=== PATIENT | male | born 1970 | race Hispanic/Latino ===

== ENCOUNTER 2017-05-17 21:25 | Inpatient (IN) | payer OTHER ==
[2017-05-17] MEDS ORDERED: ASPIRIN PO ONE (21:57)
[2017-05-17 22:25] LABS: Basophils # (Auto) 0.1 K/mm3 (0.0-0.1); Basophils % (Auto) 0.7 % (0.0-1.8); Eosinophils # (Auto) 0.2 K/mm3 (0.0-0.4); Eosinophils % (Auto) 2.1 % (0.0-4.3); Hematocrit 37.3 % (35.5-45.6); Hemoglobin 12.6 gm/dl (11.8-15.2); Lymphocytes # (Auto) 2.5 K/mm3 (1.2-5.4); Lymphocytes % (Auto) 27.4 % (13.4-35.0); Mean Corpuscular HGB Conc 34 % (32-34); Mean Corpuscular Hemoglobin 28 pg (28-32); Mean Corpuscular Volume 83 fl (84-94); Monocytes # (Auto) 0.7 K/mm3 (0.0-0.8); Monocytes % (Auto) 7.1 % (0.0-7.3); Platelet Count 263 K/mm3 (140-440); Red Blood Count 4.48 M/mm3 (3.65-5.03); Red Cell Distribution Width 14.9 % (13.2-15.2)
[2017-05-17 22:38] LABS: BUN/Creatinine Ratio 17; Blood Urea Nitrogen 12 mg/dL (9-20); Calcium 9.3 mg/dL (8.4-10.2); Hemolysis Index 1
[2017-05-17] MEDS ORDERED: MORPHINE IV ONE (23:36)
[2017-05-17] MEDS ORDERED: NITRO-BID 2% TP ONE (23:36)
[2017-05-17] MEDS ORDERED: ZOFRAN IV ONE (23:36)
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
--- NOTE | 2017-05-18 00:04 | XRay Report ---
FINAL REPORT EXAM: XR CHEST 1V AP HISTORY: chest pain TECHNIQUE: upright single view chest PRIORS: None. FINDINGS: Cardiac and mediastinal contours are unremarkable. No focal pulmonary infiltrate is identified. No pleural fluid collection seen. Pulmonary vasculature is unremarkable. IMPRESSION: Negative single-view chest
[2017-05-18] MEDS ORDERED: ZOFRAN IV PRN (01:26)
[2017-05-18] MEDS ORDERED: PERCOCET 5/325 PO PRN (01:26)
[2017-05-18] MEDS ORDERED: TYLENOL PO PRN (01:26)
[2017-05-18] MEDS ORDERED: SODIUM CHLORIDE FLUSH SYRINGE 10 ML IV PRN (01:26)
--- NOTE | 2017-05-18 01:35 | History and Physical Report ---
History of Present Illness Date of examination: 05/18/17 History of present illness: 47-year-old male with no medical problems comes emergency room with complaints of chest pain. Pain is in the epigastric area which he describes as sharp pain , intermittent in nature lasting for a few minutes, intensity 4/10, no radiation , cannot identify exacerbating over the counter. No nausea vomiting, shortness of breath, diaphoresis or palpitation Review of systems Constitutional: no weight loss, chills Ears, eyes, nose, mouth and throat: no nasal congestion, no nasal discharge, no sinus pressure, no vision change, no red eye. Neck: No neck pain or rigidity. Cardiovascular: no palpitations Respiratory: No cough, shortness of breath Gastrointestinal: no abdominal pain, hematochezia Genitourinary : no dysuria, frequency , no hematuria Musculoskeletal: no joint swelling or muscle ache Integumentary: no rash, no pruritis Neurological: no parathesias, no numbness, no focal weakness Endocrine: no cold or heat intolerance, no polyuria or polydipsia Hematologic/Lymphatic: no easy bruising, no easy bleeding, no gland swelling Allergic/Immunologic: no urticaria, no angioedema. PAST MEDICAL HISTORY: None PAST SURGICAL HISTORY: Right hand SOCIAL HISTORY: Admits to tobacco, alcohol, cocaine, methamphetamine use FAMILY HISTORY: Hypertension Medications and Allergies Allergies Allergy/AdvReac Type Severity Reaction Status Date / Time No Known Allergies Allergy Verified 05/17/17 23:40 Active Meds: Active Medications Acetaminophen (Tylenol) 650 mg PO Q4H PRN PRN Reason: Pain MILD(1-3)/Fever >100.5/GARCIA Enoxaparin Sodium (Lovenox) 30 mg SUB-Q QDAY BARRIE Ondansetron HCl (Zofran) 4 mg IV Q8H PRN PRN Reason: Nausea And Vomiting Oxycodone/Acetaminophen (Percocet 5/325) 1 tab PO Q4H PRN PRN Reason: Pain, Moderate (4-6) Sodium Chloride (Sodium Chloride Flush Syringe 10 Ml) 10 ml IV BID BARRIE Sodium Chloride (Sodium Chloride Flush Syringe 10 Ml) 10 ml IV PRN PRN PRN Reason: LINE FLUSH Exam - Physical Exam Narrative exam: Gen. appearance: Patient lying in bed, no apparent distress HEENT: Normocephalic, atraumatic, pupils equally round and reactive to light, extraocular movement intact, and no sclericterus,. No JVD or thyromegaly or nodule,neck supple, no carotid bruit ,mucous membranes moist, no exudate or erythema Heart: S1, S2, regular rate and rhythm Lungs: Clear to auscultation bilaterally, breathing comfortable Abdomen: Positive bowel sounds, nontender, nondistended, no organomegaly Extremity: No edema, cyanosis, clubbing Skin: No rash, nodules, warm, dry Neuro: Oriented 3, cranial nerves II-12 intact, speech is fluent, motor and sensory intact - Constitutional Vitals: Temp Pulse Resp BP Pulse Ox 98.3 F 100 H 18 142/99 97 05/17/17 21:52 05/17/17 21:52 05/17/17 21:52 05/18/17 00:49 05/17/17 21:52 Results - Labs CBC & Chem 7: 05/17/17 22:01 05/17/17 22:01 Labs: Abnormal lab results 05/17/17 05/17/17 Range/Units 22:01 22:01 MCV 83 L (84-94) fl Creatinine 0.7 L (0.8-1.5) mg/dL - Imaging and Cardiology EKG: image reviewed Chest x-ray: image reviewed Assessment and Plan Assessment Chest pain rule out ACS Substance abuse Plan Admit medicine Check cardiac enzymes, stress test DVT prophylaxis, percocet
[2017-05-18 08:16] LABS: Creatine Kinase MB 2.4 ng/mL (0.0-4.0)
[2017-05-18] MEDS ORDERED: LEXISCAN IV NR (08:23)
[2017-05-18] MEDS ORDERED: LEXISCAN IV ONE (08:38)
[2017-05-18] MEDS ORDERED: LOVENOX SUB-Q SCH ×2 (10:00)
[2017-05-18] MEDS ORDERED: SODIUM CHLORIDE FLUSH SYRINGE 10 ML IV SCH (10:00)
--- NOTE | 2017-05-18 12:52 | Treadmill Report ---
NUCLEAR PERFUSION SCAN Room #474 REFERRING PHYSICIAN: Madelin Lewis MD PROTOCOL: The patient was brought to the stress lab in a postoperative state, given 10 mCi of technetium 99m. The patient underwent rest imaging. The patient underwent Lexiscan stress test per standard protocol. At peak stress, the patient was given 26 mCi of technetium 99m. Shortly after stress imaging, raw imaging reveals mild GI artifact significant motion artifact. SPECT images examined carefully in horizontal long axis, vertical long axis, short axis views. There is normal muscle uptake of radioisotope in all reported segments. No evidence of a significant fixed or reversible perfusion defects suggestive of prior infarction or ischemia. Gated wall motion reveals normal systolic thickening, calculated ejection fraction of 63%, no TID. CONCLUSIONS: 1. Normal myocardial perfusion scan without evidence of active ischemia or prior infarction. 2. Normal left ventricular systolic performance without evidence of transient ischemic dilatation or stress-induced segmental wall motion abnormalities. JOB# [id number] [id number]/ONEIL
--- NOTE | 2017-05-18 17:49 | Discharge Summary ---
Providers - Providers Date of Admission: 05/18/17 01:26 Date of discharge: 05/18/17 Attending physician: MARLO NOGUERA Primary care physician: WIN MARY Hospitalization Condition: Fair Exam - Constitutional Vitals: Temp Pulse Resp BP Pulse Ox 98.3 F 101 H 20 107/80 97 05/17/17 21:52 05/18/17 09:20 05/18/17 10:00 05/18/17 09:20 05/18/17 01:52 Plan Follow up with: WIN AMRY MD [Primary Care Provider] - 3-5 Days
[2017-05-18 19:11] VITALS: BP 132/87
== END 2017-05-18 20:54 | DRG 313 ==
LOC: EEVIPCON 21:25 → ED 21:25 → 4A 05-18 01:26
PROVIDERS: ADMIT Internal Medicine; ATTEND Internal Medicine
DX: R07.9 Chest pain, unspecified (principal); E11.9 Type 2 diabetes mellitus without complications; F19.10 Other psychoactive substance abuse, uncomplicated; F17.200 Nicotine dependence, unspecified, uncomplicated; Z72.89 Other problems related to lifestyle; Z82.49 Family history of ischemic heart disease and other diseases of the circulatory system
CPT/HCPCS: 36415; 71045; 78452; 80048; 82550; 82553; 82962; 84484; 85025; 93005; 93010; 93017; A9502; J2270; J2405; J2785